=== PATIENT | male | born 1950 | race Caucasian/White ===

== ENCOUNTER 2016-07-30 15:52 | Emergency (ER) | payer BC, MEDICARE | END 2016-07-30 20:28 | disposition home or self-care (01) | LOC: ER 15:52 | DX: S80.212A Abrasion, left knee, initial encounter (principal); S40.011A Contusion of right shoulder, initial encounter; S60.021A Contusion of right index finger without damage to nail, initial encounter; V27.0XXA Motorcycle driver injured in collision with fixed or stationary object in nontraffic accident, initial encounter; Y92.410 Unspecified street and highway as the place of occurrence of the external cause; E11.9 Type 2 diabetes mellitus without complications; I10 Essential (primary) hypertension; G62.9 Polyneuropathy, unspecified; Z79.899 Other long term (current) drug therapy | CPT/HCPCS: 71250; 72125; 73030; 73140; 73564; 96372; 99070; 99284-25 ==